=== PATIENT | female | born 1970 | race Caucasian/White ===

== ENCOUNTER → 2017-03-17 | Outpatient (CLI) | payer OTHER ==
--- NOTE | 2017-03-18 09:25 | RADONC ---
RADIATION ONCOLOGY CONSULTATION NOTE: DATE: 03/17/2017 CHART NUMBER: [id number]. DIAGNOSIS: Left breast cancer. STAGE: I A, [id number]. ECOG PERFORMANCE STATUS: Zero. CONSULTATION NOTE: Ms. Mac is a very pleasant, 47-year-old white female with the diagnosis of a stage I A, [id number] well-differentiated infiltrating ductal carcinoma of the left breast who is presenting to us today status post lumpectomy and sentinel lymph node sampling for consideration of postoperative radiation therapy for conservative breast management and cure. HISTORY OF PRESENT ILLNESS: The patient was in her usual state of health until routine mammogram was done, which was done on 01/26/2017, which showed a suspicious area in the 3-o'clock position of the left breast. It was located approximately 8 cm from the nipple and measured approximately 5 mm x 3 mm x 9 mm. On 02/25/2017, the patient underwent lumpectomy and sentinel lymph node biopsy. Pathology revealed an 8 mm well-differentiated invasive ductal carcinoma. One sentinel lymph node was sampled and was negative for malignancy. The tumor was estrogen receptor and progesterone receptor positive and HER2 negative. The patient has done well since surgery and is now presenting to us for consideration of postoperative radiation therapy for conservative breast management. She has not yet seen medical oncology for their recommendations. PAST MEDICAL HISTORY: The patient's past medical history has been generally noncontributory except for two C-sections. She has been in general good health. ALLERGIES: The patient has NO KNOWN DRUG ALLERGIES. SOCIAL HISTORY: The patient does not smoke cigarettes. She drinks alcohol approximately twice week. FAMILY HISTORY: The patient's family history is positive for sister with breast cancer and a father with leukemia. REVIEW OF SYSTEMS: The patient's review of systems is positive for frequent migraines and some occasional anxiety. It is otherwise noncontributory. Denies nausea, vomiting, fevers, chills, night sweats, diplopia, headaches, anxiety or depression, anorexia, weight loss, visual disturbances, chest pain, urinary or bowel difficulties, bone pain, or neurological problems. PHYSICAL EXAMINATION: The patient is a well-developed, well-nourished, 47-year-old white female in no acute distress. HEENT exam is normocephalic, atraumatic. Extraocular movements are intact. There is no palpable cervical, supraclavicular, infraclavicular, axillary, or inguinal lymphadenopathy present. Lungs are clear to auscultation and percussion. Heart has a regular rate and rhythm. Abdomen is benign with no hepatosplenomegaly, masses, or tenderness. Breast examination reveals no masses or discharge bilaterally. Skeletal examination reveals no tenderness to pressure or percussion of the bony skeleton. Extremities reveal no clubbing, cyanosis, or edema. Neurologic exam is grossly intact, as is the remainder of the physical examination. ASSESSMENT: Clearly the patient is a candidate for external beam radiation therapy and I have so informed her. I have discussed with the patient in detail the potential benefits as well as possible acute and chronic sequelae of external beam radiation therapy. We discussed logistics of treatment planning, simulation subsequent fractionated daily radiation treatments. We also discussed alternating fractionation schedules but considering her age traditional fractionation is recommended by the NCCN guidelines. We did discuss those NCCN guidelines at length as well. I have scheduled the patient for the next available simulation slot and radiation treatments will begin subsequently. We do of course await the recommendations from medical oncology. Clearly if she were to receive systemic therapy it would be delivered before radiation begins. cc: *Sawyer Schroeder MD *Evan Mac MD
== END ==
LOC: M ONCR 13:56
PROVIDERS: ATTEND Radiology Radiation Oncology
DX: C50.919 Malignant neoplasm of unspecified site of unspecified female breast (principal)

== ENCOUNTER 2017-03-19 10:59 | Outpatient (RCR) | payer OTHER ==
--- NOTE | 2017-03-19 11:05 | RADONC ---
RADIATION ONCOLOGY SIMULATION NOTE DATE: 03/19/2017 CHART NUMBER: [id number] Ms. Mac was taken to the CT scan for CT simulation of her left breast field. CT was accomplished without difficulty or discomfort. Radiation treatment planning is underway and radiation treatments will begin subsequently. An immobilization device was created without difficulty or discomfort and will be used throughout the course of treatment. I was physically present throughout the course of CT simulation.
[2017-03-19 12:10] LABS: MEAN CORPUSCULAR HGB CONC 34.8 g/dl (32.0-36.5); MEAN CORPUSCULAR VOLUME 91.9 fl (80.0-96.0); WHITE BLOOD COUNT 5.6 K/mm3 (4.0-10.0)
== END 2017-03-25 ==
LOC: M ONCR 10:59
PROVIDERS: ATTEND Radiology Radiation Oncology
DX: C50.812 Malignant neoplasm of overlapping sites of left female breast (principal)

== ENCOUNTER → 2017-03-19 | Outpatient (CLI) | payer OTHER | LOC: M RAD 10:31 | PROVIDERS: ATTEND Radiology Radiation Oncology | DX: C50.919 Malignant neoplasm of unspecified site of unspecified female breast (principal) ==

== ENCOUNTER 2017-03-26 09:29 | Outpatient (RCR) | payer OTHER ==
--- NOTE | 2017-04-01 07:59 | RADONC ---
RADIATION ONCOLOGY PROGRESS NOTE DATE: 03/31/2017 CHART NUMBER: [id number] Ms. Mac is presently at a dose of 360 cGy to her left breast and is tolerating treatments quite well at this point with no complaints related to her radiation therapy. She has no breast or bone pain. REVIEW OF SYSTEMS: The patient's review of systems is noncontributory. Denies nausea, vomiting, fevers, chills, night sweats, diplopia, headaches, anxiety or depression, anorexia, weight loss, visual disturbances, chest pain, urinary or bowel difficulties, bone pain, or neurological problems. PHYSICAL EXAMINATION: The patient is a well-developed, well-nourished, 47-year-old female in no acute distress. HEENT exam is normocephalic, atraumatic. Extraocular movements are intact. There is no palpable cervical, supraclavicular, infraclavicular, axillary, or inguinal lymphadenopathy present. Lungs are clear to auscultation and percussion. Heart has a regular rate and rhythm. Abdomen is benign with no hepatosplenomegaly, masses, or tenderness. Breast examination reveals no masses or discharge bilaterally. Skeletal examination reveals no tenderness to pressure or percussion of the bony skeleton. Extremities reveal no clubbing, cyanosis, or edema. Neurologic exam is grossly intact, as is the remainder of the physical examination. ASSESSMENT: The patient is clinically doing well at this time and radiation will continue as scheduled.
--- NOTE | 2017-04-06 09:32 | RADONC ---
RADIATION ONCOLOGY PROGRESS NOTE: DATE: 04/06/2017 CHART NO: [id number] Ms. Mac is presently at a dose of 1080 cGy to her left breast and is tolerating treatments quite well at this point with no complaints related to her radiation therapy. She is having no breast or bone pain. REVIEW OF SYSTEMS: The patient's review of systems is noncontributory. Denies nausea, vomiting, fevers, chills, night sweats, diplopia, headaches, anxiety or depression, anorexia, weight loss, visual disturbances, chest pain, urinary or bowel difficulties, bone pain, or neurological problems. PHYSICAL EXAMINATION: The patient's skin is in excellent condition with no evidence of radiation change present. There is no moist or dry desquamation. The remainder of her physical exam remains unchanged. ASSESSMENT: The patient is clinically doing quite well at this point and radiation will continue as scheduled.
--- NOTE | 2017-04-13 09:33 | RADONC ---
RADIATION ONCOLOGY PROGRESS NOTE DATE: 04/13/2017 CHART NUMBER: [id number] Ms. Mac is presently at a dose of 1980 centigrade to her left breast and is tolerating treatments quite well at this point with no significant difficulties related to her radiation therapy. She is having no breast or bone pain. REVIEW OF SYSTEMS: The patient's review of systems is noncontributory. Denies nausea, vomiting, fevers, chills, night sweats, diplopia, headaches, anxiety or depression, anorexia, weight loss, visual disturbances, chest pain, urinary or bowel difficulties, bone pain, or neurological problems. PHYSICAL EXAMINATION: The patient's skin is in good condition with no evidence of moist or dry desquamation. There is just some mild erythema present. The remainder of her physical exam remains unchanged. Ms. Mac is tolerating treatments quite well and radiation will continue as scheduled.
--- NOTE | 2017-04-20 12:30 | RADONC ---
RADIATION ONCOLOGY PROGRESS NOTE: DATE: 04/20/2017 CHART NUMBER: [id number]. PROGRESS NOTE: Ms. Mac is presently at a dose of 2880 cGy to her left breast and is tolerating treatments quite well at this point with no significant difficulties related to her radiation therapy. She is having no breast or bone pain. REVIEW OF SYSTEMS: The patient's review of systems is noncontributory. Denies nausea, vomiting, fevers, chills, night sweats, diplopia, headaches, anxiety or depression, anorexia, weight loss, visual disturbances, chest pain, urinary or bowel difficulties, bone pain, or neurological problems. PHYSICAL EXAMINATION: The patient's skin is in good condition with no evidence of moist or dry desquamation. The remainder of her physical exam remains unchanged. Ms. Mac is tolerating treatments quite well and radiation will continue as scheduled.
[2017-04-23] MEDS ORDERED: SILV-4 TOP (07:48)
== END 2017-04-24 ==
LOC: M ONCR 09:29
PROVIDERS: ATTEND Radiology Radiation Oncology
DX: C50.812 Malignant neoplasm of overlapping sites of left female breast (principal)

== ENCOUNTER 2017-04-29 10:02 | Outpatient (RCR) | payer OTHER ==
[~2017-04-29 10:02] MED LIST: SILV-4 TOP
--- NOTE | 2017-05-01 10:36 | RADONC ---
RADIATION ONCOLOGY PROGRESS NOTE DATE: 04/29/2017 CHART NUMBER: [id number]. Ms. Mac is presently at a dose of 3780 centigrade to her left breast and is tolerating treatments quite well at this point with no complaints related to her radiation therapy. She is having no breast or bone pain. REVIEW OF SYSTEMS: The patient's review of systems is noncontributory. Denies nausea, vomiting, fevers, chills, night sweats, diplopia, headaches, anxiety or depression, anorexia, weight loss, visual disturbances, chest pain, urinary or bowel difficulties, bone pain, or neurological problems. PHYSICAL EXAMINATION: The patient's skin is in good condition with no evidence of moist dry desquamation. The remainder of her physical exam remains unchanged. Ms. Mac is tolerating treatments quite well and radiation will continue as scheduled.
--- NOTE | 2017-05-04 08:04 | RADONC ---
RADIATION ONCOLOGY SIMULATION NOTE DATE: 05/04/2017 CHART NUMBER: [id number] Ms. Mac was taken to the linear accelerator today for clinical setup of her left breast electron beam primary site boost field. Setup was accomplished without difficulty or discomfort. Radiation treatment planning is underway and radiation treatments will begin subsequently. An immobilization device has been created and will be used throughout the course of treatment. I was physically present throughout the course of electron simulation.
--- NOTE | 2017-05-04 08:06 | RADONC ---
RADIATION ONCOLOGY PROGRESS NOTE DATE: 05/04/2017 CHART NUMBER: [id number] Ms. Mac is presently at a dose of 4320 centigrade to her left breast and is tolerating treatments quite well at this point with no complaints related to her radiation therapy. She is having no breast or bone pain. REVIEW OF SYSTEMS: The patient's review of systems is noncontributory. Denies nausea, vomiting, fevers, chills, night sweats, diplopia, headaches, anxiety or depression, anorexia, weight loss, visual disturbances, chest pain, urinary or bowel difficulties, bone pain, or neurological problems. PHYSICAL EXAMINATION: The patient's skin is in excellent condition with no evidence of moist or dry desquamation. There is radiation tanning and erythema present. The remainder of her physical exam remains unchanged. Ms. Mac is tolerating treatments quite well and radiation will continue as scheduled.
--- NOTE | 2017-05-11 08:28 | RADONC ---
RADIATION ONCOLOGY PROGRESS NOTE DATE: 05/11/2017 CHART NUMBER: [id number] Ms. Mac is presently at a dose of 5260 cGy to her left breast primary site boost and is tolerating treatments quite well at this point with no complaints related to her radiation therapy. She is having no breast or bone pain. The patient's review of systems is noncontributory. She denies nausea, vomiting, fevers, chills, night sweats, diplopia, headaches, anxiety or depression, anorexia, weight loss, visual disturbances, chest pain, urinary or bowel difficulties, bone pain, or neurological problems. PHYSICAL EXAMINATION: The patient's skin is in good condition with no evidence of moist or dry desquamation. There is radiation tanning present. The remainder of her physical exam remains unchanged. Ms. Mac is tolerating treatments quite well and radiation will continue as scheduled.
--- NOTE | 2017-05-15 10:49 | RADONC ---
RADIATION ONCOLOGY TREATMENT SUMMARY: DATE: 05/14/2017 CHART NUMBER: [id number]. DIAGNOSIS: Left breast cancer. STAGE: IA, [id number]. ECOG PERFORMANCE STATUS: Zero. TREATMENT SUMMARY: Ms. Mac is a very pleasant, 47-year-old white female with the diagnosis of a stage IA, [id number] well-differentiated infiltrating ductal carcinoma of the left breast who presented to us status post lumpectomy and sentinel lymph node biopsy for consideration of postoperative radiation therapy in attempt to increase the likelihood of achieving local control and cure. We treated the patient to the left breast for a total dose of 4860 cGy delivered in 27 fractions of 180 cGy each over 38 elapsed days, from 03/30/2017 through 05/07/2017. The patient's left breast was treated on a linear accelerator utilizing a combination of 6X and 18X photons. 3-D technique was utilized with medial lateral tangential gaxiola. Following completion of 4860 cGy the primary site was boosted for an additional 1200 cGy delivered in 6 fractions of 200 cGy each from, 05/08/2017 through 05/15/2017. The primary site boost was treated on a linear accelerator utilizing a 9 MeV electron beam prescribed to the 90% isodose line via non phos technique. This brought the primary site to a total dose of 6060 cGy delivered in 33 fractions over 46 elapsed days, from 03/30/2017 through 05/15/2017. Ms. Mac tolerated her treatments quite well and was able to complete therapy as prescribed without interruption. I have scheduled the patient to see me again in 1 month for further followup. She will also continue to be followed by her other physicians as well. Thank you once again for allowing us to participate in the care of this delightful woman. If I could be of any further assistance or provide you with any information, please feel free to contact me anytime. As always, warm regards. cc: MD Sawyer Sewell MD
== END 2017-05-25 ==
LOC: M ONCR 10:02
PROVIDERS: ATTEND Radiology Radiation Oncology
DX: C50.812 Malignant neoplasm of overlapping sites of left female breast (principal)

== ENCOUNTER → 2017-06-17 | Outpatient (CLI) | payer OTHER ==
--- NOTE | 2017-06-17 12:13 | RADONC ---
RADIATION ONCOLOGY FOLLOWUP NOTE: DATE: 06/17/2017 CHART NUMBER: [id number]. DIAGNOSIS: Left breast cancer. STAGE: IA, [id number]. ECOG PERFORMANCE STATUS: Zero. FOLLOWUP NOTE: Ms. Mac is a very pleasant, 47-year-old white female with the diagnosis of a stage IA, [id number] well-differentiated infiltrating ductal carcinoma of the left breast who is presenting to us today for routine followup visit 1 month post completion of external beam radiation therapy. The patient presents today reporting that she is doing quite well with no complaints at this time related to her radiation therapy or disease. She has no breast or bone pain. REVIEW OF SYSTEMS: The patient's review of systems is noncontributory. Denies nausea, vomiting, fevers, chills, night sweats, diplopia, headaches, anxiety or depression, anorexia, weight loss, visual disturbances, chest pain, urinary or bowel difficulties, bone pain, or neurological problems. PHYSICAL EXAMINATION: The patient is a well-developed, well-nourished, 47-year-old white female, in no acute distress. HEENT exam is normocephalic, atraumatic. Extraocular movements are intact. There is no palpable cervical, supraclavicular, infraclavicular, axillary, or inguinal lymphadenopathy present. Lungs are clear to auscultation and percussion. Heart has a regular rate and rhythm. Abdomen is benign with no hepatosplenomegaly, masses, or tenderness. Breast examination reveals no masses or discharge bilaterally. Skeletal examination reveals no tenderness to pressure or percussion of the bony skeleton. Extremities reveal no clubbing, cyanosis, or edema. Neurologic exam is grossly intact, as is the remainder of the physical examination. ASSESSMENT: The patient is clinically HUONG at this time and will be seen by us again in 6 months for further followup. She will also continue to be followed by her other physicians as well. cc: MD Daisy Sewell MD Joel Yellin, MD
== END ==
LOC: M ONCR 11:40
PROVIDERS: ATTEND Radiology Radiation Oncology
DX: C50.812 Malignant neoplasm of overlapping sites of left female breast (principal)

== ENCOUNTER → 2017-10-22 | Outpatient (CLI) | payer OTHER | LOC: M ONCR 12:56 | DX: C50.812 Malignant neoplasm of overlapping sites of left female breast (principal) ==

== ENCOUNTER → 2017-12-23 | Outpatient (CLI) | payer OTHER | LOC: M ONCR 15:21 | DX: C50.812 Malignant neoplasm of overlapping sites of left female breast (principal) ==

== ENCOUNTER → 2019-01-19 | Outpatient (CLI) | payer OTHER ==
--- NOTE | 2019-01-21 06:32 | RADONC ---
RADIATION ONCOLOGY FOLLOWUP NOTE DATE: 01/19/2019 CHART NUMBER: [id number] DIAGNOSIS: Left breast cancer. STAGE I A, [id number]. ECOG PERFORMANCE STATUS: 0 FOLLOWUP NOTE: Ms. Mac is a very pleasant 48-year-old white female with the diagnosis of a stage I A, T1b, N0M0 well-differentiated infiltrating ductal carcinoma of the left breast who is presenting to us today for routine followup visit 1 year and 8 months post completion of external beam radiation therapy. The patient presents today reporting that she is doing quite well with no complaints at this time related to her radiation therapy or disease. She has no breast or bone pain. The patient's review of systems is noncontributory. She denies nausea, vomiting, fevers, chills, night sweats, diplopia, headaches, anxiety or depression, anorexia, weight loss, visual disturbances, chest pain, urinary or bowel difficulties, bone pain, or neurological problems. PHYSICAL EXAMINATION: The patient is a well-developed, well-nourished female in no acute distress. HEENT exam is normocephalic, atraumatic. Extraocular movements are intact. There is no palpable cervical, supraclavicular, infraclavicular, axillary, or inguinal lymphadenopathy present. Lungs are clear to auscultation and percussion. Heart has a regular rate and rhythm. Abdomen is benign with no hepatosplenomegaly, masses, or tenderness. Breast examination reveals no masses or discharge bilaterally. Skeletal examination reveals no tenderness to pressure or percussion of the bony skeleton. Extremities reveal no clubbing, cyanosis, or edema. Neurologic exam is grossly intact, as is the remainder of the physical examination. ASSESSMENT: The patient is clinically HUONG at this time. She is being followed closely by her medical oncologist as well as her surgeon and primary care doctor. In light of this, I am discharging her except on a p.r.n. basis. cc: MD Daisy Sewell MD Joel Yellin, MD
== END ==
LOC: M ONCR 15:21
PROVIDERS: ATTEND Radiology Radiation Oncology
DX: Z85.3 Personal history of malignant neoplasm of breast (principal)